=== PATIENT | female | born 1950 | race Caucasian/White ===

== ENCOUNTER 2018-04-08 23:02 | Emergency (ER) | payer OTHER ==
[~2018-04-08] VITALS: Ht 160 cm; Wt 62.6 kg
--- NOTE | 2018-04-08 23:42 | ED GI/GU/ABDOMINAL COMPLAINT ---
History of Present Illness General Chief Complaint: General Adult Stated Complaint: ABD.PAIN X THIS AFTERNOON/REBOLLEDO BEING TESTED FOR LYME Source: patient, family, old records Exam Limitations: no limitations Vital Signs & Intake/Output Vital Signs & Intake/Output Vital Signs Date Time Temp Pulse Resp B/P B/P Pulse O2 O2 Flow FiO2 Mean Ox Delivery Rate 04/09 0050 99.3 104 18 118/73 94 Room Air 04/09 0049 99.3 04/09 0011 100.3 109 04/09 0009 100.3 04/08 2315 102.1 112 18 145/82 94 ED Intake and Output 04/09 0000 04/08 1200 Intake Total 0 Output Total Balance 0 Intake, Oral 0 Patient 138 lb Weight Weight Reported by Patient Measurement Method Allergies Coded Allergies: Penicillins (Intermediate, HIVES 04/09/18) Triage Note: SEE NURSES NOTES Triage Nurses Notes Reviewed? yes LMP (ages 10-50): post menopausal ? n Is pt currently ? No Onset: Evening Duration: hour(s):, constant, continues in ED Timing: recent history Quality/Severity: cramping, moderate Location: epigastric Radiation: chest Activities at Onset: rest Prior Abdominal Problems: similar symptoms Past Sexual History: Unobtainable at this time No Modifying Factors: none Associated Symptoms: abdominal pain, fever/chills, loss of appetite, nausea/ vomiting HPI: 10 days prior to admission patient was bitten by a tick. She believes it did not stay on her body for long period of time. She saw her PMD had labs and doxycycline was started. She received 2 doses today. Several hours prior to admission after taking her second dose of doxycycline she developed epigastric discomfort burning radiating to her chest associated with nausea. In the ED she is found to have a fever. She denies vomiting diarrhea cough shortness of breath headache dysuria bleeding. Past History Travel History Traveled to [place] past 21 day No Medical History Any Pertinent Medical History? see below for history Cardiovascular: HIGH CHOLESTEROL Gastrointestinal: ACID REFLEX Surgical History Surgical History: non-contributory Psychosocial History What is your primary language Yi Tobacco Use: Never used ETOH Use: denies use Illicit Drug Use: denies illicit drug use Family History Hx Contributory? No Review of Systems Review of Systems Constitutional: Reports: see HPI. EENTM: Reports: no symptoms. Respiratory: Reports: no symptoms. Cardiovascular: Reports: no symptoms. GI: Reports: see HPI, abdominal pain, nausea. Genitourinary: Reports: no symptoms. Musculoskeletal: Reports: no symptoms. Skin: Reports: see HPI, rash. Neurological/Psychological: Reports: no symptoms. Hematologic/Endocrine: Reports: no symptoms. Immunologic/Allergic: Reports: no symptoms. All Other Systems: Reviewed and Negative Physical Exam Physical Exam General Appearance: well developed/nourished, alert, awake, mild distress Head: atraumatic, normal appearance Eyes: Bilateral: normal appearance, PERRL, EOMI, normal inspection. Ears, Nose, Throat, Mouth: hearing grossly normal, moist mucous membrane Neck: normal inspection, supple, full range of motion, normal alignment Respiratory: normal breath sounds, chest non-tender, no respiratory distress, quiet respiration, lungs clear Cardiovascular: regular rate/rhythm, normal peripheral pulses, tachycardia, norml femoral pulses equa Peripheral Pulses: 4+ carotid (R), 4+ carotid (L) Gastrointestinal: normal bowel sounds, soft, non-tender, no organomegaly Back: normal range of motion, no vertebral tenderness Extremities: normal range of motion, no ligament instability Neurologic/Psych: no motor/sensory deficits, awake, alert, oriented x 3, normal gait, normal mood/affect, 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 No Sepsis Present: No Sepsis Focused Exam Completed? No Progress Differential Diagnosis: gastritis, PUD/GERD, UTI/pyelo, lyme, medication rx Plan of Care: Orders Procedure Date/time Status URINALYSIS 04/08 2323 Complete LIPASE 04/08 2323 Complete COMPREHENSIVE METABOLIC PANEL 04/08 2323 Complete CBC WITHOUT DIFFERENTIAL 04/08 2323 Complete Laboratory Tests 04/09/18 0048: Urinalysis LIGHT H, Urine Color YEL, Urine Clarity HAZY H, Urine pH 6.0, Ur Specific [place] 1.020, Urine Protein TRACE H, Urine Ketones 15 H, Urine Nitrite NEG, Urine Bilirubin NEG, Urine Urobilinogen 2.0 H, Ur Leukocyte Esterase TRACE H, Ur Microscopic SEDIMENT EXAMINED, Urine RBC 5-10 H, Urine WBC 10-15 H, Ur Epithelial Cells FEW, Urine Bacteria FEW H, Urine Mucus MOD H , Urine Hemoglobin NEG, Urine Glucose NEG 04/08/18 2330: Anion Gap 13, Estimated GFR > 60, BUN/Creatinine Ratio 30.0 H, Glucose 130 H, Calcium 8.8, Total Bilirubin 0.6, AST 214 H, ALT 118 H, Alkaline Phosphatase 417 H, Total Protein 7.1, Albumin 3.7, Globulin 3.4, Albumin/Globulin Ratio 1.1 , Lipase 209, CBC w Diff MAN DIFF ORDERED, RBC 4.47, MCV 88.9, MCH 30.4, MCHC 34.1, RDW 14.0, MPV 6.7 L, Gran % 85.7 H, Lymphocytes % 9.0 L, Monocytes % 5.1, Eosinophils % 0, Basophils % 0.2, Absolute Granulocytes 7.0 H, Segmented Neutrophils 83 H, Band Neutrophils 4, Absolute Lymphocytes 0.7 L, Lymphocytes 7 L, Monocytes 6, Absolute Monocytes 0.4, Absolute Eosinophils 0, Absolute Basophils 0, Platelet Estimate ADEQUATE, Polychromasia 1+, Ovalocytes FEW, Stomatocytes FEW, Fld Total RBCs Counted 100 Diagnostic Imaging: Viewed by Me: CT Scan. Discussed w/RAD: CT Scan. Radiology Impression: Mild nonspecific retroperitoneal stranding, suggesting mild inflammation of uncertain etiology/significance. No additional acute findings identified. Initial ED EKG: none Departure Departure Time of Disposition: 219 Disposition: HOME OR SELF CARE Condition: Stable Clinical Impression Primary Impression: Acute Lyme disease Secondary Impressions: Fever, Transaminitis Referrals: Makenzie IRVIN,Kulwinder Costa (PCP/Family) Additional Instructions: Tylenol or motrin around the clock for fever. Departure Forms: Customer Survey General Discharge Information Prescriptions: Current Visit Scripts Ondansetron (Zofran Odt) 1 TAB SL TID PRN n/v #10 TAB Hyoscyamine Sulfate (Levsin-Sl) 1-2 TAB SL Q4P PRN abdominal cramps #30 TAB
[2018-04-08 23:45] LABS: ABSOLUTE BASOPHIL COUNT 0 /CUMM (0.0-0.2); ABSOLUTE EOSINOPHIL COUNT 0 /CUMM (0.0-0.7); ABSOLUTE LYMPH COUNT 0.7 /CUMM (1.2-3.4); ABSOLUTE MONOCYTE COUNT 0.4 /CUMM (0.10-0.60); BASOPHIL % 0.2 % (0.0-2.0); EOSINOPHIL % 0 % (0-5); GRANULOCYTE % 85.7 % (42.2-75.2); HEMATOCRIT 39.8 % (37-47); MEAN CORPUSCULAR HGB 30.4 PG (27.0-31.0); MEAN CORPUSCULAR HGB CONC 34.1 G/DL (33.0-37.0); MEAN CORPUSCULAR VOLUME 88.9 FL (81.0-99.0); MEAN PLATELET VOLUME 6.7 FL (7.4-10.4); PLATELET COUNT 214 /CUMM (130-400); RED BLOOD CELL CT 4.47 /CUMM (4.20-5.40); WHITE BLOOD CELL COUNT 8.1 /CUMM (4.8-10.8)
--- NOTE | 2018-04-09 02:14 | CT SCAN REPORT ---
EXAMINATION: CT ABDOMEN AND PELVIS WITH CONTRAST CLINICAL INFORMATION: Fever, abdominal pain, transaminitis COMPARISON: 04/27/2009 TECHNIQUE: Multidetector volumetric imaging was performed of the abdomen and pelvis following IV administration of 95 mL of Optiray 320 intravenous contrast. Sagittal and coronal reformatted images were obtained on the technologist's workstation. DLP: 272.33 mGy-cm FINDINGS: LUNG BASES: The visualized lung bases demonstrate regions of atelectasis. LIVER, GALLBLADDER, AND BILIARY TREE: The liver is normal in size, shape, and attenuation. There is a stable subcentimeter hypoattenuating lesion in the left hepatic lobe, too small to characterize. No biliary ductal dilatation is present. The gallbladder is unremarkable. PANCREAS: Unremarkable. SPLEEN: Unremarkable. ADRENAL GLANDS: Unremarkable. KIDNEYS AND URETERS: The kidneys are normal in size, shape, and attenuation. No hydronephrosis, hydroureter, or calculi seen. BLADDER: Unremarkable. GASTROINTESTINAL TRACT: There is a moderate amount of stool in the colon. No evidence of bowel obstruction or abnormal wall thickening. Patient appears status post appendectomy. No free fluid or free air is seen. ABDOMINAL WALL: No significant hernia is appreciated. LYMPH NODES: Scattered mesenteric and retroperitoneal subcentimeter lymph nodes are present, without significant enlargement by size criteria. There is mild nonspecific retroperitoneal stranding. VASCULAR: Unremarkable. PELVIC VISCERA: Patient is status post hysterectomy. OSSEOUS STRUCTURES: Unremarkable. IMPRESSION: Mild nonspecific retroperitoneal stranding, suggesting mild inflammation of uncertain etiology/significance. No additional acute findings identified.
[2018-04-09] MEDS ORDERED: ZOFRAN ODT4 M1 SL (02:23)
[2018-04-09] MEDS ORDERED: LEVSIN-SL0.125 MG SL (02:23)
[2018-04-09 02:33] VITALS: BP 112/59
== END 2018-04-09 02:34 ==
LOC: ERH 23:02
PROVIDERS: Emergency Medicine
DX: A69.20 Lyme disease, unspecified (principal); R74.0 Nonspecific elevation of levels of transaminase and lactic acid dehydrogenase [LDH]
CPT/HCPCS: 86317; 87798; 74177; 81001; 96365; 96375; J0131; J2765